=== PATIENT | male | born 1945 | race Caucasian/White ===

== ENCOUNTER 2016-12-31 08:38 | Day surgery (SDC) | payer MEDICARE, OTHER ==
[2016-12-31] MEDS ORDERED: Gatifloxacin 0.5% Ophth Soln 2.5 ML Bot EYELF SCH (08:55)
[2016-12-31] MEDS ORDERED: Lactated Ringers 1,000 ML IV SCH (08:55)
[2016-12-31] MEDS ORDERED: Sodium Chloride 0.9% 5 ML Syringe FLUSH PRN (08:55)
[2016-12-31] MEDS: Cyclopentolate 1% Opth Soln 2 ML Bottle EYELF SCH ×3 (09:57→10:46)
[2016-12-31] MEDS: Phenylephrine 10% Ophth Soln 5 ML Bot EYELF SCH ×3 (10:03→10:33)
[2016-12-31] MEDS ORDERED: Tetracaine 0.5% 2 ML Bottle EYEBOTH ONE (11:58)
[2016-12-31] MEDS ORDERED: Carbachol 0.01% Intraocular 1.5 ML Vial EYELF ONE (11:58)
[2016-12-31] MEDS ORDERED: Balanced Salt Solution Plus Ophth Irrig 500 ML Bottle IOCULAR ONE (11:58)
[2016-12-31] MEDS ORDERED: Water For Irrigation,Sterile 1,500 ML Container IRR ONE (11:58)
[2016-12-31] MEDS ORDERED: Balanced Salt Solution Ophth Irrig 15 ML Bottle EYELF ONE (11:58)
[2016-12-31] MEDS ORDERED: EPINEPHrine 1 MG/ML SDV ONE (11:59)
[2016-12-31] MEDS ORDERED: Dexamethasone/Neomycin/Polymyxin B Ophth Oint 3.5 GM Tube EYELF ONE (12:00)
[2016-12-31] MEDS ORDERED: Lidocaine 1% 10 ML MDV INJECT ONE (12:00)
[2016-12-31] MEDS ORDERED: Lidocaine 2% with EPINEPHrine 1:100,000 20 ML MDV INJECT ONE (12:00)
[2016-12-31] MEDS ORDERED: Hyaluronate Sodium 1% 0.85 ML Syringe IOCULAR ONE (12:01)
[2016-12-31 12:46] VITALS: BP 138/68
--- NOTE | 2017-01-01 08:21 | OR ---
DATE OF SURGERY: 12/31/2016 SURGEON: Eddy Taylor MD PREOPERATIVE DIAGNOSIS: Cataract, left eye. POSTOPERATIVE DIAGNOSIS: Cataract, left eye. OPERATION PERFORMED: Phacoemulsification with posterior chamber lens insertion, left eye. FINDINGS: The patient was taken to the operating room where appropriate anesthesia, sedation and monitoring were provided. A retrobulbar block was given on the left side. The eye was massaged and was found to be appropriately soft. The eye and eyelids were then prepped and draped in the usual sterile manner. A lid speculum was placed. A micro sharp blade was used to enter the anterior chamber inside the limbus inferior-temporally. Xylocaine was irrigated into the eye at this site. Healon was irrigated into the eye through this site. Then using a 2.85 mm corneal blade an entry was made into the anterior chamber just inside the limbus temporally. Healon was again irrigated into the eye. Then using a cystitome, the anterior capsulorrhexis was created. The lens nucleus was hydrodissected using a 27 gauge cannula and balanced salt solution. The phacoemulsification unit was introduced through the temporal site and the Jonny spatula through the inferior temporal site. In so doing, the lens nucleus was phacoemulsified. The cortical fragments of the lens were removed using the irrigation aspiration unit. The posterior capsule was polished. Healon was irrigated into the eye. The posterior chamber lens was inserted and rotated into position inside the capsular bag. The Healon was irrigated out of the eye. Miostat was irrigated into the eye and the pupil rounded nicely and an additional interrupted 10-0 Nylon suture was placed through the inferior temporal corneal incision site. Balanced salt solution was irrigated into the eye. The wound was tested and found to be tight. Maxitrol ointment was placed into the patient's left eye. The eyelids were closed and an eye patch and marrufo shield were placed. The patient left the operating room in good condition. /[id number]/MODL
== END 2016-12-31 12:52 | disposition home or self-care (01) ==
LOC: KA.SDS 08:38
PROVIDERS: ATTEND Ophthalmology
DX: H26.9 Unspecified cataract (principal); Z79.899 Other long term (current) drug therapy
CPT/HCPCS: 66984; A9270; J0171; J7120; 00142; C1780

== ENCOUNTER 2017-01-28 10:33 | Day surgery (SDC) | payer MEDICARE, OTHER ==
[~2017-01-28 10:33] MED LIST: Gatifloxacin 0.5% Ophth Soln 2.5 ML Bot EYERT SCH
[2017-01-28] MEDS ORDERED: Sodium Chloride 0.9% 5 ML Syringe FLUSH PRN (10:35)
[2017-01-28] MEDS ORDERED: Lactated Ringers 1,000 ML IV SCH (10:35)
[2017-01-28] MEDS: Cyclopentolate 1% Opth Soln 2 ML Bottle EYERT SCH ×3 (11:13→11:36)
[2017-01-28] MEDS: Phenylephrine 10% Ophth Soln 5 ML Bot EYERT SCH ×3 (11:20→11:40)
[2017-01-28] MEDS ORDERED: Dexamethasone/Neomycin/Polymyxin B Ophth Oint 3.5 GM Tube EYERT ONE (13:30)
[2017-01-28] MEDS ORDERED: Balanced Salt Solution Plus Ophth Irrig 500 ML Bottle IOCULAR ONE (13:30)
[2017-01-28] MEDS ORDERED: Lidocaine 2% with EPINEPHrine 1:100,000 20 ML MDV INJECT ONE (13:30)
[2017-01-28] MEDS ORDERED: Balanced Salt Solution Ophth Irrig 15 ML Bottle EYERT ONE (13:30)
[2017-01-28] MEDS ORDERED: Lidocaine 1% 10 ML MDV INJECT ONE (13:30)
[2017-01-28] MEDS ORDERED: Tetracaine 0.5% 2 ML Bottle EYEBOTH ONE ×2 (13:30→17:10)
[2017-01-28] MEDS ORDERED: Carbachol 0.01% Intraocular 1.5 ML Vial EYERT ONE (13:30)
[2017-01-28] MEDS ORDERED: EPINEPHrine 1 MG/ML SDV ONE (13:30)
[2017-01-28] MEDS ORDERED: Water For Irrigation,Sterile 1,500 ML Container IRR ONE (13:30)
[2017-01-28] MEDS ORDERED: Hyaluronate Sodium 1% 0.85 ML Syringe IOCULAR ONE (13:30)
[2017-01-28 13:56] VITALS: BP 146/71
--- NOTE | 2017-01-29 09:51 | OR ---
DATE OF SURGERY: 01/28/2017 SURGEON: Eddy Taylor MD PREOPERATIVE DIAGNOSIS: Cataract, right eye. POSTOPERATIVE DIAGNOSIS: Cataract, right eye. OPERATION PERFORMED: Phacoemulsification with posterior chamber lens insertion, right eye. FINDINGS: The patient was taken to the operating room where appropriate anesthesia, sedation and monitoring were provided. A retrobulbar block was given on the right side. The eye was massaged and was found to be appropriately soft. The eye and eyelids were then prepped and draped in the usual sterile manner. A lid speculum was placed. A micro sharp blade was used to enter the anterior chamber inside the limbus superior-temporally. Xylocaine was irrigated into the eye at this site. Healon was irrigated into the eye through this site. Then using a 2.85 mm corneal blade an entry was made into the anterior chamber just inside the limbus temporally. Healon was again irrigated into the eye. Then using a cystitome, the anterior capsulorrhexis was created. The lens nucleus was hydrodissected using a 27 gauge cannula and balanced salt solution. The phacoemulsification unit was introduced through the temporal site and the Jonny spatula through the superior temporal site. In so doing, the lens nucleus was phacoemulsified. The cortical fragments of the lens were removed using the irrigation aspiration unit. The posterior capsule was polished. Healon was irrigated into the eye. The posterior chamber lens was inserted and rotated into position inside the capsular bag. The Healon was irrigated out of the eye. Miostat was irrigated into the eye and the pupil rounded nicely. A single interrupted 10-0 Nylon suture was placed through the temporal corneal incision site. Balanced salt solution was irrigated into the eye. The wound was tested and found to be tight. Maxitrol ointment was placed into the patient's right eye. The eyelids were closed and an eye patch and marrufo shield were placed. The patient left the operating room in good condition. /[id number]/MODL
== END 2017-01-28 14:35 | disposition home or self-care (01) ==
LOC: KA.SDS 10:33
PROVIDERS: ATTEND Ophthalmology
DX: H26.9 Unspecified cataract (principal); Z79.899 Other long term (current) drug therapy
CPT/HCPCS: 66984; A9270; J0171; J7120; 00142; V2632

== ENCOUNTER 2018-08-17 06:55 | Day surgery (SDC) | payer MEDICARE, OTHER ==
[~2018-08-17 06:55] MED LIST changes: +EPINEPHrine 1:10,000 1 MG/10 ML Syringe ONE; -Gatifloxacin 0.5% Ophth Soln 2.5 ML Bot EYERT SCH
[2018-08-17] MEDS ORDERED: Midazolam 1 MG/ML 2 ML SDV ONE (06:57)
[2018-08-17] MEDS ORDERED: Propofol 200 MG/20 ML SDV ONE (06:57)
[2018-08-17] MEDS ORDERED: Lidocaine 2% 5 ML SDV ONE (06:57)
[2018-08-17] MEDS ORDERED: Lactated Ringers 1,000 ML IV SCH (07:00)
[2018-08-17] MEDS ORDERED: Sodium Chloride 0.9% 10 ML Syringe FLUSH PRN (07:00)
[2018-08-17] MEDS ORDERED: Midazolam 1 MG/ML 2 ML SDV IV ONE (08:30)
[2018-08-17] MEDS ORDERED: Propofol 200 MG/20 ML SDV IV ONE (08:30)
[2018-08-17] MEDS ORDERED: EPINEPHrine 1:10,000 1 MG/10 ML Syringe ONE (08:43)
--- NOTE | 2018-08-17 09:07 | PCM.OPNOTE ---
- General Post-Op/Procedure Note Date of Surgery/Procedure: 08/17/18 Operative Procedure(s): Upper GI endoscopy and biopsies. Findings: Patient has evidence of reflux esophagitis, 5 cm hiatal hernia with slight inflammation, antral gastritis, small antral polyps, mild duodenitis involving the first and second part of the duodenum. Biopsies were taken from the gastric polyp and the gastroesophageal junction. Pre Op Diagnosis: Dysphagia at the sternal area. Post-Op Diagnosis: Dysphagia of the upper esophagus most likely due to gastroesophageal junction inflammation, reflux esophagitis and gastritis. Anesthesia Technique: [facility] [place] Primary Surgeon: Maryann Hernández Complications: None Condition: Good Free Text/Narrative:: INFORMED CONSENT: Patient is here today for elective upper GI endoscopy. All aspects of this procedure have been discussed with the patient. All possible complications also, including possibility of perforation, infection, pain, bleeding, numbness of the throat, swallowing difficulty and unknown complications. In the event of perforation the patient may need surgical exploration to repair the defect. The patient understands fully well. Patient did not have any further questions for me at the end of my interview. The patient wishes for me to proceed. INSTRUMENT USED: Video gastroscope Indication: Dysphagia at the upper esophagus. ANESTHESIA: [[facility] [place]] ASA CLASSIFICATION: [2] PROCEDURE PERFORMED: [Upper gastrointestinal endoscopy and biopsies from the gastroesophageal junction, biopsy from polyp of the greater curvature.] PHARYNX: Normal. ESOPHAGUS: Normal. Proximal: Normal. Middle: Normal. Lower: Normal moderate inflammation noted at the lower esophagus. No ulceration.. GE Junction: Approximate 5 cm hernia with moderate inflammation noted. Biopsies taken from this area.. STOMACH: Normal. Cardia: Normal. Fundus: Normal. Lesser Curvature: Normal. Greater Curvature: Multiple small polyps identified. Biopsies taken from one of the polyps.. Antrum: Gastritis identified.. Pylorus: Normal. Mild spasm DUODENUM: Normal. First Part: Mild gastritis. Second Part: Mild gastritis Third Part: Normal. RETROFLEXION: Normal. BIOPSY: Taken from the gastric polyp and gastroesophageal junction.. TOLERANCE: Excellent. COMPLICATIONS: None.
[2018-08-17 11:03] VITALS: BP 132/73
== END 2018-08-17 10:37 | disposition home or self-care (01) ==
LOC: KA.SDS 06:55
PROVIDERS: ATTEND Family Medicine
DX: K20.9 Esophagitis, unspecified (principal); K31.7 Polyp of stomach and duodenum; Z79.899 Other long term (current) drug therapy
CPT/HCPCS: 00731; 88305; J0171; J2250; J2704; J7120